=== PATIENT | female | born 1970 | race Caucasian/White ===

== ENCOUNTER 2021-03-26 17:10 | Emergency (ER) | payer OTHER, BC ==
[2021-03-26] MEDS ORDERED: Boostrix 0.5 ML (Tdap) VIAL ONE (17:40)
== END 2021-03-26 19:53 | disposition home or self-care (01) ==
LOC: ERS 17:10
DX: S22.41XA Multiple fractures of ribs, right side, initial encounter for closed fracture (principal); S06.9X9A Unspecified intracranial injury with loss of consciousness of unspecified duration, initial encounter; S20.411A Abrasion of right back wall of thorax, initial encounter; V11.4XXA Pedal cycle driver injured in collision with other pedal cycle in traffic accident, initial encounter
CPT/HCPCS: 70450; 72125; 90471; 90715

== ENCOUNTER 2024-04-06 13:13 | Outpatient (CLI) | payer BC | END 2024-04-06 13:14 | disposition home or self-care (01) | LOC: BICMAMMO 13:13 | PROVIDERS: ATTEND Student in an Organized Health Care Education/Training Program | DX: T07.XXXA Unspecified multiple injuries, initial encounter (principal); M81.0 Age-related osteoporosis without current pathological fracture; M85.851 Other specified disorders of bone density and structure, right thigh; M85.852 Other specified disorders of bone density and structure, left thigh; Z82.62 Family history of osteoporosis | CPT/HCPCS: 77080 ==